=== PATIENT | female | born 1985 | race Caucasian/White ===

== ENCOUNTER 2021-10-26 09:20 | Emergency (ER) | payer BC, SELFPAY ==
--- NOTE | 2021-10-26 09:25 | ED_ITS ---
HPI - COVID General: Chief Complaint: COVID symptoms Stated Complaint: COVID +:20 WKS PREG, COUGH,DIFF BREATHING,ACID REF Time Seen by Provider: 10/26/21 09:23 History of Present Illness: HPI Narrative: 36-year-old female who is at 20 weeks gestation. She tested positive for COVID 8 days ago. She has had cough which is nonproductive. She is not had any monoclonal antibodies or any other treatment. She has noticed a little bit more exertional dyspnea in the last 24 hours cough is nonproductive. She tested positive for the [facility] department on 1227 she had had symptoms since 1224. MD complaint: known COVID positive Prior covid testing: yes, results known Prior testing date: 10/21/21 COVID 19 common symptoms: positive fever(s), chills, cough, non-productive cough, dyspnea, fatigue, body aches, throat pain and nasal congestion; negative headache(s), loss of sense of smell and/or taste, nausea, vomiting or diarrhea COVID 19 other sytmptoms: negative chest pain Onset (ago): day(s) (8) Severity: mild Pertinent comorbid conditions: other (20 weeks gestation) Treatment prior to arrival: none COVID Results: No Data to Display Review of Systems Const: Reports: fever(s), chills, body aches and fatigue ENMT: Reports: throat pain and nasal congestion Card: Reports: dyspnea on exertion; Denies: chest pain, edema or orthopnea Resp: Reports: dyspnea and non-productive cough GI: Denies: nausea, vomiting or diarrhea : Denies: flank pain, difficulty voiding, dysuria, urinary frequency or urinary urgency Skin/Breast: Denies: rash or pruritus Neuro: Denies: headache(s) [facility] ED PFSH: Medical History Asthma state, incidental Physical Exam Const: COMMON NORMALS: no acute distress GENERAL APPEARANCE: cooperative and comfortable ORIENTATION/CONSCIOUSNESS: Yes awake, Yes oriented to person, Yes oriented to place and Yes oriented to time HENMT: COMMON NORMALS: normocephalic, atraumatic and hearing grossly normal bilaterally HEAD & SCALP: normocephalic and atraumatic Neck/C-Spine: COMMON NORMALS: no JVD Resp: COMMON NORMALS: normal respiratory effort, No retractions, No use of accessory muscles and clear to auscultation bilaterally AUSCULTATION: clear to auscultation bilaterally Cardio: COMMON NORMALS: no JVD, regular rate, regular rhythm and No murmurs present (Cardio) RATE: regular rate RHYTHM: regular rhythm GI: COMMON NORMALS: Soft to palpation and No hepatosplenomegaly present AUSCULTATION: Yes normoactive bowel sounds PALPATION: Yes Soft to palpation, No Tenderness to palpation present (GI), No Guarding due to palpation present (GI) and Yes No hepatosplenomegaly present Extremity: COMMON NORMALS: normal to inspection, capillary refill normal, no clubbing, cyanosis or edema, no calf tenderness and no pedal edema Neuro: SENSORIUM/ORIENTATION: Yes oriented to person, Yes oriented to place and Yes oriented to time Skin: COMMON NORMALS: no rashes or lesions noted GENERAL SKIN EXAM: no rashes or lesions noted Course Vital Signs: Vital signs: Vital Signs Temperature 99.4 F 10/26/21 09:36 Pulse Rate 97 10/26/21 10:08 Respiratory Rate 15 10/26/21 10:08 Blood Pressure 126/71 10/26/21 10:08 Pulse Oximetry 94 10/26/21 10:45 MDM - COVID MDM Narrative: Medical decision making narrative: Patient is at day 8 of onset of symptoms. Discussed monoclonal antibodies. Eventually she decided she would like to do that we will try to get her set up on first available date for the infusion clinic. She had a positive test at [facility]. She has any worsening or change symptoms return. COVID Results: No Data to Display Discharge Plan Discharge Patient Disposition: Home Clinical Impression: COVID-19, state, incidental Condition: Stable Prescriptions: No Action fluticasone propion-salmeterol [Advair Diskus] 250-50 mcg/dose blister with device 2 inh inhalation BID RF: 0 fluticasone propion-salmeterol [Advair Diskus] 250-50 mcg/dose blister with device 1 inh inhalation BID 30 Days Qty: 60 RF: 11 benzoyl peroxide 2.5 % cleanser 1 applic topical DAILY 30 Days Qty: 227 RF: 2 clindamycin phosphate 1 % gel 1 applic topical DAILY 30 Days Qty: 30 RF: 2 Discharge Orders: Discharge ED (Routine); Ordered 10/26/21 Ordered By: [place]rette Bay Other Ambulatory Orders: Request for MCA (Routine) Timeframe: 1 Day Facility: [facility] - Location: Outpatient Surgical Services Ordered By: [place]rette [place] Referrals: LATA MUNOZ MD [Primary Care Provider] - Discharge Diet: Usual diet Discharge Activity: Limit activity as instructed Patient Instructions: Opioid Safety Activity Restrictions/Additional Instructions: Maintain self quarantine as directed by the health department. materials and processes manager will make arrangements for you to monoclonal antibody infusion on Thursday in 2 days. Return if you have further problems. Coding Level of Care Code ED Computer Sciences Professor for [employer] Fwd Exam Comprehensive
[2021-10-26 09:36] VITALS: BP 126/71; PULSE 108; RESP 15; TEMP 37.4; O2SAT 96; BMI 36.8
[2021-10-26 10:08] VITALS: BP 126/71; PULSE 97; RESP 15; O2SAT 95
[2021-10-26 10:10] VITALS: O2SAT 95
[2021-10-26 10:45] VITALS: O2SAT 94; O2SAT 95
--- NOTE | 2021-10-29 15:26 | DCPLANNER ---
oracle database manager was asked to order the MCA infusion for patient. oracle database manager faxed signed order to centralized scheduling, who will call patient with appointment information.
== END 2021-10-26 11:15 | disposition home or self-care (01) ==
PROVIDERS: Emergency Provider Family Medicine; PCP Obstetrics & Gynecology
DX: O98.512 Other viral diseases complicating pregnancy, second trimester (principal); U07.1 COVID-19; Z3A.20 20 weeks gestation of pregnancy
CPT/HCPCS: 99283

== ENCOUNTER → 2022-07-29 16:50 | Outpatient (BNVA) | payer BC, SELFPAY | PROVIDERS: PCP Nurse Practitioner; Visit Provider Nurse Practitioner | DX: N39.0 Urinary tract infection, site not specified (principal) | CPT/HCPCS: 87077; 87086; 87184 ==

== ENCOUNTER 2024-06-29 15:56 | Outpatient (CLI) | payer BC, SELFPAY ==
--- NOTE | 2024-06-29 16:00 | MM_ITS ---
WS: [id number] BILATERAL 3D TOMOSYNTHESIS DIGITAL SCREENING MAMMOGRAPHY WITH CAD CLINICAL INFORMATION: Z12.31 - Encounter for screening mammogram for malignant ... HISTORY: Screening mammogram. No current complaints. COMPARISON: Baseline TECHNIQUE: Bilateral CC and MLO views. FINDINGS: Scattered fibroglandular densities bilaterally. No suspicious focal mass, asymmetry, calcifications, or architectural distortion. No evidence of malignancy. A few incidental punctate calcifications. MM/[id number] IMPRESSION: DENSITY: There are scattered areas of fibroglandular density. BI-RADS: 2 - Benign. FOLLOW UP: 1 Year Follow-up Recommend return to annual screening mammography.
== END 2024-06-29 15:57 | disposition home or self-care (01) ==
LOC: MOBLMAM 16:10
PROVIDERS: PCP Nurse Practitioner Family; Visit Provider Nurse Practitioner Family
DX: Z12.31 Encounter for screening mammogram for malignant neoplasm of breast (principal); R92.323 Mammographic fibroglandular density, bilateral breasts; R92.1 Mammographic calcification found on diagnostic imaging of breast
CPT/HCPCS: 77063; 77067

== ENCOUNTER → 2024-08-08 08:50 | Outpatient (BNVA) | payer BC, SELFPAY | PROVIDERS: PCP Nurse Practitioner Family; Visit Provider Nurse Practitioner Family | DX: Z13.6 Encounter for screening for cardiovascular disorders (principal); E66.9 Obesity, unspecified; J45.20 Mild intermittent asthma, uncomplicated; Z79.899 Other long term (current) drug therapy | CPT/HCPCS: 80053; 80061; 81003; 83036; 84439; 84443; 85025 ==